=== PATIENT | female | born 1990 | race African-American/Black ===

== ENCOUNTER 2017-11-06 16:17 | Observation (INO) | payer MEDICAID ==
[~2017-11-06] VITALS: Ht 167.6 cm; Wt 78.5 kg
[2017-11-06] MEDS ORDERED: PNV1TABL76 MT (18:03)
== END 2017-11-06 18:55 | disposition home or self-care (01) ==
LOC: L&D 16:17
PROVIDERS: ADMIT Specialist; ATTEND Specialist
DX: O36.8130 Decreased fetal movements, third trimester, not applicable or unspecified (principal); Z3A.33 33 weeks gestation of pregnancy
CPT/HCPCS: 76815; 76818; 99281; G0378